=== PATIENT | male | born 1970 | race Caucasian/White ===

== ENCOUNTER 2019-08-25 11:53 | Outpatient (CLI) | payer BC, SELFPAY ==
--- NOTE | ~2019-08-25 | PE_ITS ---
EXAMINATION: PET skull to mid thigh DATE: 08/25/2019 14:12 INDICATION: Non-small cell right lung cancer. TECHNIQUE: Blood glucose level was 82 mg/dL. 9.707 mCi of 18-fluorodeoxyglucose (18-FDG) was administ ered i.v. Low dose computed tomography (CT) images were acquired from the base of the brain to the pr oximal thighs for attenuation correction and anatomic localization. Automated exposure control was em ployed. Dose-length product (DLP) was 445 mGy-cm. Positron emission tomography (PET) images were acqu ired in the same distribution. COMPARISON: Abdomen CT 07/20/2008 FINDINGS: Head/neck: There is increased activity in the floor of mouth, oropharynx, left sternocleidomastoid mu scle, and glottis without CT correlate, likely physiologic. Right maxillary dental disease is noted. Chest: There is severe emphysema. There are patchy airspace and groundglass opacities and nodules inv olving the all lobes of the lungs bilaterally. The larger airspace opacities demonstrated increased a ctivity. No pleural effusion. The heart size is normal. No pericardial effusion. There are coronary a rtery calcifications. There is increased activity in a normal-sized right hilar lymph node, likely re active. Abdomen/pelvis/proximal thighs: The liver, spleen, gallbladder, pancreas, adrenal glands, and kidneys are normal. There are no dilated loops of bowel. There is diverticulosis of the colon without eviden ce of diverticulitis. There are no pathologically enlarged lymph nodes. There is no free intraperiton eal fluid. There is no osseous malignancy. IMPRESSION: 1. Multifocal lung disease, likely at least predominantly pneumonia. Malignancy cannot be excluded. C omparison with prior outside imaging or repeat imaging after resolution of acute findings may be usef ul. 2. Increased activity in a normal-sized right hilar lymph node, likely reactive. Reviewed, dictated and finalized at location [facility]. [employer] IMPRESSION: 1. Multifocal lung disease, likely at least predominantly pneumonia. Malignancy cannot be excluded. Comparison with prior outside imaging or repeat imaging af ter resolution of acute findings may be useful. 2. Increased activity in a normal-sized right hilar lymph node, likely reactive .
[2019-08-25 12:35] LABS: Glucose Point of Care 82 (65-105)
== END 2019-08-25 11:54 | disposition home or self-care (01) ==
DX: C34.11 Malignant neoplasm of upper lobe, right bronchus or lung (principal)
CPT/HCPCS: 78815; A9552